=== PATIENT | female | born 1955 | race Asian ===

== ENCOUNTER 2019-08-15 20:30 | Emergency (ER) | payer OTHER ==
[~2019-08-15] VITALS: Ht 160 cm; Wt 103.9 kg
[~2019-08-15 20:30] MED LIST: ATOR20TA2 PO; CHOL100034 PO; CLON0.1T16 PO; DIVA250T2 PO; DIVA500T2 PO; DOCU100C10 PO; DONE5TAB PO; ESCI10TA PO; LEVO0.1T6 PO; LORA1TAB17 PO; MAGN400T4 PO; MEMA5TAB PO; PANTOPRAZOLE 40MG TA PO; RISP2TAB2 PO; SEROQUEL200 MG PO; SEROQUEL400 MG PO; SEROQUEL50 MG PO; TYLENOL325 MG PO; ZOLOFT25 MG PO
[2019-08-15 21:10] LABS: PLATELET COUNT 232 K/uL (152-353)
[2019-08-15 21:21] LABS: POTASSIUM 3.6 mmol/L (3.6-5.2)
[2019-08-15 22:01] VITALS: BP 129/76; TEMP 98.2
[2019-08-15] MEDS ORDERED: TIROSINT125 MCG PO (22:07)
[2019-08-15] MEDS ORDERED: ABILIFY20 MG PO (22:08)
[2019-08-15] MEDS ORDERED: ESCITALOPRAM20 MG PO (22:11)
[2019-08-15] MEDS ORDERED: FUROSEMIDE80 MG PO (22:12)
[2019-08-15] MEDS ORDERED: MAG OXIDE400 MG PO (22:13)
[2019-08-15] MEDS ORDERED: DONE5TAB PO (22:14)
[2019-08-15] MEDS ORDERED: TRAMADOL HYDROC50 MG PO (22:15)
[2019-08-15] MEDS ORDERED: ALBUTEROL0.63 MG/3 INH (22:18)
[2019-08-15] MEDS ORDERED: DONEPEZIL HYDRO10 MG PO (22:19)
[2019-08-15] MEDS ORDERED: OLANZAPINE15 MG PO (22:20)
[2019-08-15] MEDS ORDERED: METF500T PO (22:30)
[2019-08-15] MEDS ORDERED: PANTOPRAZOLE SO40 M2 PO (22:31)
[2019-08-15] MEDS ORDERED: POTASSIUM CHLO20 ME1 PO (22:32)
[2019-08-15] MEDS ORDERED: DIVA500T2 PO (22:33)
[2019-08-15] MEDS ORDERED: STOOL SOFTENER100 MG PO (22:34)
[2019-08-15] MEDS ORDERED: NUEDEXTA PO (22:40)
[2019-08-15] MEDS ORDERED: RISPERDAL4 MG PO (22:40)
[2019-08-15] MEDS ORDERED: DIVA250T2 PO (22:41)
[2019-08-15] MEDS ORDERED: VITAMIN D31000 UNIT PO (22:44)
== END 2019-08-15 22:02 | disposition other institution (70) ==
LOC: ED 20:30
PROVIDERS: Emergency Medicine
DX: F20.89 Other schizophrenia (principal); Z03.818 Encounter for observation for suspected exposure to other biological agents ruled out; Z04.6 Encounter for general psychiatric examination, requested by authority
CPT/HCPCS: 36415; 80053; 81000; 85027; 87635; 93005; 99283; U0002